=== PATIENT | female | born 1955 | race Caucasian/White ===

== ENCOUNTER → 2017-05-30 | Outpatient (CLI) | payer OTHER ==
[~2017-05-30] MED LIST: BUDEPRION XL300 MG PO; CIPRO 500MG TA500 MG PO; CITRACAL PLUS1 TAB PO; FLAGYL 250250 MG/TAB PO; KLONOPIN 0.5MG0.5 MG PO; PREMPRO 0.3 MG-1 TAB PO; PREMPRO 0.45 MG1 TAB PO; PROBIOTIC FORMU1 CAP PO; STRATTERA 25MG25 MG PO; TOPROL XL 25MG25 MG PO; VIIBRYD20 MG PO; ZYRTEC 10MG10 MG PO
== END ==
LOC: MC.RAD 08:00
DX: Z12.31 Encounter for screening mammogram for malignant neoplasm of breast (principal)

== ENCOUNTER 2017-10-08 11:28 | Day surgery (SDC) | payer OTHER ==
[~2017-10-08] VITALS: Ht 160 cm; Wt 70.1 kg
[2017-10-08] MEDS ORDERED: WELLBUTRIN XL150 MG PO (11:52)
[2017-10-08] MEDS ORDERED: VITAMIN D31000 IU PO (11:53)
[2017-10-08] MEDS ORDERED: CALCIUM CARBON650 M2 PO (11:54)
[2017-10-08] MEDS ORDERED: MULTI VITAMINS1 TAB PO (11:54)
[2017-10-08] MEDS ORDERED: VITAMIN B COMPL1 T16 PO (11:55)
[2017-10-08] MEDS ORDERED: VITAMINC500CH PO (11:56)
[2017-10-08 12:19] VITALS: BP 114/71; PULSE 72; TEMP 99
[2017-10-08 13:45] VITALS: BP 112/73; PULSE 73; TEMP 99.1
[2017-10-08 14:00] VITALS: BP 110/64; PULSE 59
[2017-10-08] MEDS ORDERED: LEVSIN0.125 M1 PO (14:14)
[2017-10-08] MEDS ORDERED: ZANTAC 150MG T150 MG PO (14:14)
[2017-10-08 14:15] VITALS: BP 100/59; PULSE 59
[2017-10-08 14:30] VITALS: BP 106/56; PULSE 66
[2017-10-08 16:46] VITALS: BP 110/56; PULSE 80
== END 2017-10-08 15:00 | disposition home or self-care (01) ==
LOC: SDCO 11:28
DX: K31.7 Polyp of stomach and duodenum (principal); K44.9 Diaphragmatic hernia without obstruction or gangrene; K29.30 Chronic superficial gastritis without bleeding; K29.80 Duodenitis without bleeding; K57.30 Diverticulosis of large intestine without perforation or abscess without bleeding; K64.0 First degree hemorrhoids
CPT/HCPCS: OP; J2250; J3010; J7030

== ENCOUNTER → 2017-10-21 | Outpatient (CLI) | payer OTHER ==
[~2017-10-21] MED LIST changes: +CALCIUM CARBON650 M2 PO; +LEVSIN0.125 M1 PO; +MULTI VITAMINS1 TAB PO; +VITAMIN B COMPL1 T16 PO; +VITAMIN D31000 IU PO; +VITAMINC500CH PO; +WELLBUTRIN XL150 MG PO; +ZANTAC 150MG T150 MG PO
== END ==
LOC: BHSO 10:54
DX: F33.1 Major depressive disorder, recurrent, moderate (principal)

== ENCOUNTER → 2017-11-06 | Outpatient (CLI) | payer OTHER | LOC: BHSO 14:24 | DX: F41.1 Generalized anxiety disorder (principal) | CPT/HCPCS: G0463 ==

== ENCOUNTER → 2017-11-25 | Outpatient (CLI) | payer OTHER | LOC: BHSO 10:59 | DX: F41.1 Generalized anxiety disorder (principal) ==

== ENCOUNTER → 2018-06-13 | Outpatient (CLI) | payer OTHER | LOC: BHSO 10:56 | DX: F31.81 Bipolar II disorder (principal) | CPT/HCPCS: G0463 ==

== ENCOUNTER → 2018-06-30 | Outpatient (CLI) | payer OTHER | LOC: MC.RAD 10:20 | DX: Z12.31 Encounter for screening mammogram for malignant neoplasm of breast (principal) ==

== ENCOUNTER → 2018-12-16 | Outpatient (CLI) | payer OTHER | LOC: BHSO 10:55 | DX: F33.42 Major depressive disorder, recurrent, in full remission (principal) | CPT/HCPCS: G0463 ==

== ENCOUNTER → 2019-05-18 | Outpatient (CLI) | payer MEDICARE, OTHER | LOC: COL.RAD 05-15 08:15 | DX: M17.0 Bilateral primary osteoarthritis of knee (principal); M81.0 Age-related osteoporosis without current pathological fracture; R41.3 Other amnesia | CPT/HCPCS: A9585 ==

== ENCOUNTER → 2019-07-28 | Outpatient (CLI) | payer MEDICARE, OTHER | LOC: MC.RAD 11:15 | DX: Z12.31 Encounter for screening mammogram for malignant neoplasm of breast (principal) ==

== ENCOUNTER → 2019-07-30 | Outpatient (CLI) | payer MEDICARE, OTHER | LOC: BHSO 09:17 | DX: F33.42 Major depressive disorder, recurrent, in full remission (principal) | CPT/HCPCS: G0463 ==

== ENCOUNTER → 2019-09-29 | Outpatient (CLI) | payer MEDICARE, OTHER | LOC: COL.CARD 12:00 | DX: R00.2 Palpitations (principal); R06.02 Shortness of breath; I47.1 Supraventricular tachycardia ==

== ENCOUNTER → 2019-12-22 | Outpatient (CLI) | payer MEDICARE, OTHER | LOC: COL.RAD 08:15 | DX: R11.2 Nausea with vomiting, unspecified (principal); R10.9 Unspecified abdominal pain; R19.5 Other fecal abnormalities ==

== ENCOUNTER → 2020-07-29 | Outpatient (CLI) | payer MEDICARE, OTHER | LOC: MC.RAD 10:14 | DX: Z12.31 Encounter for screening mammogram for malignant neoplasm of breast (principal); Z00.00 Encounter for general adult medical examination without abnormal findings ==

== ENCOUNTER → 2020-09-09 | Outpatient (CLI) | payer MEDICARE, OTHER | LOC: BHSO 13:53 | DX: F33.42 Major depressive disorder, recurrent, in full remission (principal) | CPT/HCPCS: G0463 ==

== ENCOUNTER 2020-09-25 17:11 | Emergency (ER) | payer MEDICARE, OTHER ==
[~2020-09-25] VITALS: Ht 160 cm; Wt 79.5 kg
[2020-09-25 17:17] VITALS: TEMP 98.6
[2020-09-25 17:38] LABS: BASO % 0.5 % (0.0-2.0); EOS # 0.1 (0.0-0.7); EOS % 1.2 % (0-4.0); GRAN # 3.9 (1.4-6.5); GRAN % 59.4 % (42.2-75.2); HEMATOCRIT 39.5 % (37.0-47.0); HEMOGLOBIN 12.9 g/dl (12.5-16.0); LYMPH % 30.2 % (20.0-51.0); MEAN CELL VOLUME 95 fl (80.0-100.0); MEAN CORPUSCULAR HEMOGLOBIN 31 pg (27.0-31.0); MEAN CORPUSCULAR HGB CONC 33 g/dl (33.0-37.0); MEAN PLATELET VOLUME 10.1 fl (7.4-10.4); MONO # 0.6 (0.1-0.6); MONO % 8.5 % (1.7-9.3); PLATELET COUNT 208 K/mm3 (130-400); RED BLOOD COUNT 4.15 M/mm3 (4.10-5.30); REDCELL DISTRIBUTION WIDTH-CV 12.6 % (11.5-14.5)
[2020-09-25 17:44] LABS: ALANINE AMINOTRANSFERASE 22 U/L (4-34); ALBUMIN 4.6 gm/dL (3.5-5.0); ALKALINE PHOSPHATASE 140 U/L (50-136); ANION GAP 9 mmol/L (7-16); AST,SGOT 32 U/L (15-37); BILIRUBIN,TOTAL 0.4 mg/dL (0.0-1.0); BLOOD UREA NITROGEN 17 mg/dL (7-17); CALCIUM 9.8 mg/dL (8.4-10.2); CARBON DIOXIDE 28 mmol/L (22-30); CHLORIDE 103 mmol/L (98-107); CREATININE, serum 0.96 (0.52-1.25); GLUCOSE 102 mg/dL (74-106); POTASSIUM 3.9 mmol/L (3.4-5.0); SODIUM 141 mmol/L (137-145); TOTAL PROTEIN 7.2 gm/dL (6.4-8.2)
[2020-09-25 17:55] LABS: TROPONIN-I < 0.012 ng/mL (0.000-0.035)
[2020-09-25 19:18] VITALS: BP 149/86; PULSE 85
== END 2020-09-25 19:21 | disposition home or self-care (01) ==
LOC: COL.ER 17:11
PROVIDERS: Emergency Medicine
DX: I47.1 Supraventricular tachycardia (principal); Z88.5 Allergy status to narcotic agent; Z87.891 Personal history of nicotine dependence
CPT/HCPCS: J7030

== ENCOUNTER → 2021-06-14 | Outpatient (CLI) | payer MEDICARE, OTHER | LOC: COL.RAD 09:05 | DX: R74.8 Abnormal levels of other serum enzymes (principal) | CPT/HCPCS: A9503 ==

== ENCOUNTER → 2023-10-03 | Outpatient (CLI) | payer MEDICARE, OTHER | LOC: COL.RAD 09:31 | DX: N13.30 Unspecified hydronephrosis (principal); R19.8 Other specified symptoms and signs involving the digestive system and abdomen ==

== ENCOUNTER 2024-09-23 12:52 | Outpatient (RCR) | payer MEDICARE, OTHER | END 2024-10-03 | disposition home or self-care (01) | LOC: WSST | DX: R13.12 Dysphagia, oropharyngeal phase (principal) ==